=== PATIENT | male | born 1985 ===

== ENCOUNTER 2018-09-03 07:43 | Inpatient (IN) | payer MEDICAID, OTHER ==
[2018-09-03] MEDS ORDERED: Clindamycin 600mg/50ml D5W 600 MG/50 ML VIAL IVPB STA (08:30)
[2018-09-03] MEDS ORDERED: Morphine 4 MG/ML VIAL IVP ONE (08:30)
[2018-09-03] MEDS ORDERED: Sodium Chloride 0.9% 1,000 ML IV STA (08:31)
--- NOTE | 2018-09-03 08:44 | ED PDOC ---
HPI: General Adult Additional History Per: Patient, Family Additional Complaint(s): 33 y/o F with PMH of asthma comes to the ER c/o 2 weeks hx of progressively worsening left hip and left leg/Fibula cellulites/abscess. As per family, this infection started 2 weeks ago as 2 small pimples, pain is 10/10, patient reports he tried to drain this two pimples but they got worse after with swelling, pain and erythema. Both sites are draining bloody fluids, + fever/Nausea and NBNB vomiting x 1, unable to walk or stand up due to the pain. Denies any chest pain, SOB, Abdominal pain, urinary symptoms or weakness. Patient has been taking Ibuprofen at home with minimum relief. PMH: Asthma PSH: Appendicitis, removed Meds: Motrin Allg: Penicillin FH: Denies SH: Denies alcohol, smoking or illicit drug use ROS: As per HPI <Mars Taylor - Last Filed: 09/03/18 09:28> <Salomon Emmanuel - Last Filed: 09/03/18 10:36> Time Seen by Provider: 09/03/18 07:58 Chief Complaint (Nursing): Lower Extremity Problem/Injury Supervising Attending Note - Supervising Attending Note The Documented history was done by the: Physician Ortho Rn The documented physical exam was done by the: Physician Ortho Rn The documented procedures were done by the: Physician Ortho Rn - Attestation: I have personally seen and examined this patient.: Yes I have fully participated in the care of the patient.: Yes I have reviewed all pertinent clinical information, including history, physical exam and plan: Yes - Notes: Notes:: leg infection <Salomon Emmanuel - Last Filed: 09/03/18 10:36> Past Medical History Vital Signs: Last Vital Signs Temp 98.6 F 09/03/18 07:50 Pulse 90 09/03/18 07:50 Resp 18 09/03/18 07:50 BP 150/82 09/03/18 07:50 Pulse Ox 96 09/03/18 07:50 - Medical History PMH: Asthma Denies: Chronic Kidney Disease - Surgical History Surgical History: Appendectomy <Mars Taylor - Last Filed: 09/03/18 09:28> Vital Signs: Last Vital Signs Temp 98.6 F 09/03/18 07:50 Pulse 79 09/03/18 09:45 Resp 18 09/03/18 09:45 BP 121/62 09/03/18 09:45 Pulse Ox 98 09/03/18 09:45 - Family History Family History: States: Unknown Family Hx <Salomon Emmanuel - Last Filed: 09/03/18 10:36> - Home Medications Home Medications: Ambulatory Orders Medication Instructions Recorded No Known Home Med 09/03/18 - Allergies Allergies/Adverse Reactions: Allergies Allergy/AdvReac Type Severity Reaction Status Date / Time Penicillins Allergy ANAPHYLAXIS Verified 09/03/18 08:04 Review of Systems Constitutional: Positive for: Fever. Negative for: Sweats Eyes: Negative for: Pain, Vision Change, Conjunctivae Inflammation ENT: Negative for: Ear Pain, Ear Discharge, Nose Pain Cardiovascular: Negative for: Chest Pain, Palpitations, Orthopnea Respiratory: Negative for: Cough, Shortness of Breath, Hemoptysis Gastrointestinal: Positive for: Nausea, Vomiting. Negative for: Abdominal Pain, Diarrhea Genitourinary Male: Negative for: Dysuria, Frequency, Incontinence Musculoskeletal: Negative for: Neck Pain, Shoulder Pain Skin: Positive for: Rash Neurological: Negative for: Weakness, Numbness, Confusion, Seizures Psych: Negative for: Anxiety <Mars Taylor - Last Filed: 09/03/18 09:28> Physical Exam - Physical Exam Appears: Positive for: Uncomfortable (Due to pain) Head Exam: Positive for: NORMAL INSPECTION Skin: Positive for: Warm (Erythema on left hip and Left fibula ) Eye Exam: Positive for: Normal appearance ENT: Positive for: Normal ENT Inspection Neck: Positive for: Normal Cardiovascular/Chest: Positive for: Regular Rate, Rhythm. Negative for: Chest Non Tender Respiratory: Positive for: Normal Breath Sounds. Negative for: Decreased Breath Sounds, Accessory Muscle Use, Crackles, Wheezing Gastrointestinal/Abdominal: Positive for: Normal Exam, Soft. 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 -CBC -CMP -PT/INR -Mg and Phos -Trop -VBG -Clinda Abx -Toradol -Morphine -Zofran -EKG -Xray: Hip and Fibula -Blood Cx -Wound Cx Case discussed with Dr. Emmanuel Possible admission Patient understands and agrees with plan <BrandonMars - Last Filed: 09/03/18 09:28> - Laboratory Results Result Diagrams: 09/03/18 09:19 09/03/18 09:19 Lab Results: pO2 20 mm/Hg (30-55) L 09/03/18 08:56 VBG pH 7.35 (7.32-7.43) 09/03/18 08:56 VBG pCO2 55 mmHg (40-60) 09/03/18 08:56 VBG HCO3 25.4 mmol/L 09/03/18 08:56 VBG Total CO2 32.1 mmol/L (22-28) H 09/03/18 08:56 VBG O2 Sat (Calc) 39.6 % (40-65) L 09/03/18 08:56 VBG Base Excess 3.1 mmol/L (0.0-2.0) H 09/03/18 08:56 VBG Potassium 4.5 mmol/L (3.6-5.2) 09/03/18 08:56 A-a O2 Difference 61.0 mm/Hg 09/03/18 08:56 Sodium 138.0 mmol/L (132-148) 09/03/18 08:56 Chloride 102.0 mmol/L (98-107) 09/03/18 08:56 Glucose 93 mg/dL (75-110) 09/03/18 08:56 Lactate 1.0 mmol/L (0.7-2.1) 09/03/18 08:56 FiO2 21.0 % 09/03/18 08:56 Crit Value Called To Dr emmanuel 09/03/18 08:56 Crit Value Called By 15 09/03/18 08:56 Crit Value Read Back Y 09/03/18 08:56 Blood Gas Notified Time 919 09/03/18 08:56 PT 12.6 Seconds (9.8-13.1) 09/03/18 09:19 INR 1.1 09/03/18 09:19 APTT 33.9 Seconds (25.6-37.1) 09/03/18 09:19 Troponin I < 0.0120 ng/mL (0.00-0.120) 09/03/18 09:19 Total Bilirubin 0.7 mg/dl (0.2-1.3) 09/03/18 09:19 AST 42 U/L (17-59) 09/03/18 09:19 ALT 14 U/L (21-72) L 09/03/18 09:19 Alkaline Phosphatase 151 U/L (38-126) H 09/03/18 09:19 Total Protein 7.9 G/DL (6.3-8.2) 09/03/18 09:19 Albumin 4.3 g/dL (3.5-5.0) 09/03/18 09:19 Globulin 3.6 gm/dL (2.2-3.9) 09/03/18 09:19 Albumin/Globulin Ratio 1.2 (1.0-2.1) 09/03/18 09:19 Interpretation Of Abn Labs: 13 wbc - ECG ECG: Positive for: Interpreted By Me, Viewed By Me ECG Rhythm: Positive for: Normal QRS, Normal ST Segment, Sinus Rhythm Pulse Ox Interpretation: Normal - Radiology X-Ray: Interpreted by Me, Viewed By Me X-Ray Interpretation: No Acute Disease - Progress ED Course And Treament: 1034: Stable. AAOx3. Pain controlled. Spoke with Dr. Kamara. Will admit. <Salomon Emmanuel - Last Filed: 09/03/18 10:36> Disposition <Mars Taylor - Last Filed: 09/03/18 09:28> - Patient ED Disposition Is Patient to be Admitted: No Counseled Patient/Family Regarding: Studies Performed, Diagnosis - Disposition Disposition Time: 08:00 - Pt Status Changed To: Hospital Disposition Of: Inpatient - Admit Certification Admit to Inpatient:: After my assessment, the patient will require hospitalization for at least two midnights. This is because of the severity of symptoms shown, intensity of services needed, and/or the medical risk in this patient being treated as an outpatient. - POA Present On Arrival: None <Salomon Emmanuel - Last Filed: 09/03/18 10:36> - Clinical Impression Clinical Impression: Cellulitis, Abscess - Disposition Condition: FAIR
[2018-09-03] MEDS ORDERED: Morphine 4 MG/ML VIAL ONE (09:03)
[2018-09-03 09:19] LABS: VENOUS BLOOD GAS BASE EXCESS 3.1 mmol/L (0.0-2.0); VENOUS BLOOD GAS PCO2 55 mmHg (40-60); VENOUS BLOOD GAS PO2 20 mm/Hg (30-55); VENOUS BLOOD PH 7.35 (7.32-7.43)
[2018-09-03 09:45] LABS: BASO % 0.2 % (0.0-2.0); EOS # 0.2 K/uL (0.0-0.7); EOS % 1.7 % (0.0-4.0); HEMOGLOBIN 15.3 g/dL (12.0-18.0); LYMPH # 1.6 K/uL (1.0-4.3); LYMPH % 11.9 % (20.0-40.0); MEAN CELL VOLUME 87.7 fl (80.0-94.0); MEAN CORPUSCULAR HEMOGLOBIN 29.5 pg (27.0-31.0); MEAN CORPUSCULAR HGB CONC 33.7 g/dL (33.0-37.0); MEAN PLATELET VOLUME 8.3 fl (7.2-11.7); MONO # 1.2 K/uL (0.0-0.8); NEUT # 10.1 K/uL (1.8-7.0); NEUT % 77.2 % (50.0-75.0); NRBC % 0.1 % (0.0-0.0); RBC 5.18 Mil/uL (4.40-5.90); RED CELL DISTRIBUTION WIDTH 12.7 % (11.5-14.5)
[2018-09-03 09:50] LABS: INR 1.1; PROTHROMBIN TIME 12.6 Seconds (9.8-13.1)
[2018-09-03 09:53] LABS: PARTIAL THROMBOPLASTIN TIME 33.9 Seconds (25.6-37.1)
[2018-09-03 10:04] LABS: ALB/GLOB RATIO 1.2 (1.0-2.1); ALBUMIN 4.3 g/dL (3.5-5.0); ALT/SGPT 14 U/L (21-72); AST/SGOT 42 U/L (17-59); BLOOD UREA NITROGEN 17 mg/dl (9-20); CALCIUM 10.2 mg/dL (8.4-10.2); GFR NON-AFRICAN AMERICAN > 60
--- NOTE | 2018-09-03 10:53 | CP.PCM.HP ---
<Nicanor Joseph - Last Filed: 09/03/18 12:21> History of Present Illness - History of Present Illness History of Present Illness: 33 yo male with PMH of asthma controlled, present to ED due to skin infection that he noted on Saturday morning. Patient report noting a acne on his LEFT pelvic and knee, and he scraped it, the next day it became inflamed, tender to touch and yellow/bloody discharge. Patient report its very painful, pain is 6 out of 10, but improved with medication. Patient also report having fever, chills, nausea and vomiting once yesterday, so he decided to come to ER today. Otherwise patient have no other complains, he denies headache, chest pain, sob, abdominal pain diarrhea, or constipation, dysuria or polyuria. PCP: none allergy Penicillins MEdication: Albuteron inhalor Prn PMH asthma PSH: Appendectomy PFH: Dad DM, Mom healthy Social: denies smoke or drug use, drink occ, denies having pets. Currently un- employed. ROS Negative except mentioned in HPI ED course Vitals; 98.7 temp, 79 HR, 121/62, 18 rr, 98 Ox WBC :13 X-Ray: Possible cellulites Patient recieved clindamycin, 1g vancomycin and pain was controlled with toradol/morphine Blood culture and wound culture sent. pending result Patient is a 33 yo male with PMH of asthma will be admitted to Med/surg to further treatment of LEFT leg Cellulites/abscess Present on Admission - Present on Admission Any Indicators Present on Admission: No Past Patient History - Past Social History Smoking Status: Never Smoked - CARDIAC Hx Cardiac Disorders: No - PULMONARY Hx Asthma: Yes - NEUROLOGICAL Hx Neurological Disorder: No - HEENT Hx HEENT Problems: No - RENAL Hx Chronic Kidney Disease: No - ENDOCRINE/METABOLIC Hx Endocrine Disorders: No - HEMATOLOGICAL/ONCOLOGICAL Hx Blood Disorders: No - INTEGUMENTARY Hx Dermatological Problems: No - MUSCULOSKELETAL/RHEUMATOLOGICAL Hx Musculoskeletal Disorders: No - GASTROINTESTINAL Hx Gastrointestinal Disorders: No - GENITOURINARY/GYNECOLOGICAL Hx Genitourinary Disorders: No - PSYCHIATRIC Hx Psychophysiologic Disorder: No Hx Substance Use: No - SURGICAL HISTORY Hx Appendectomy: Yes - ANESTHESIA Hx Anesthesia: Yes Hx Anesthesia Reactions: No Hx Malignant Hyperthermia: No Meds Allergies/Adverse Reactions: Allergies Allergy/AdvReac Type Severity Reaction Status Date / Time Penicillins Allergy ANAPHYLAXIS Verified 09/03/18 08:04 Physical Exam - Constitutional Appears: Well, Non-toxic, No Acute Distress - Head Exam Head Exam: ATRAUMATIC, NORMAL INSPECTION, NORMOCEPHALIC - Eye Exam Eye Exam: EOMI, Normal appearance, PERRL Pupil Exam: NORMAL ACCOMODATION, PERRL - ENT Exam ENT Exam: Mucous Membranes Moist, Normal Exam - Neck Exam Neck exam: Positive for: Normal Inspection - Respiratory Exam Respiratory Exam: Clear to Auscultation Bilateral, NORMAL BREATHING PATTERN - Cardiovascular Exam Cardiovascular Exam: REGULAR RHYTHM, +S1, +S2 - GI/Abdominal Exam GI & Abdominal Exam: Normal Bowel Sounds, Soft - Extremities Exam Additional comments: knee Tender to touch, warm, erythema noted from Knee to ankle, with an 3 inch abscess on the medial part of tibia Pelvic 1-2 inch erythma noted on left lateral side of pelvic, mild drainage, tender to palpate. - Back Exam Back exam: NORMAL INSPECTION - Neurological Exam Neurological exam: Alert, Oriented x3 - Psychiatric Exam Psychiatric exam: Normal Affect, Normal Mood - Skin Skin Exam: Dry, Intact, Normal Color, Warm Results - Vital Signs Recent Vital Signs: Last Vital Signs Temp 98.7 F 09/03/18 09:45 Pulse 79 09/03/18 09:45 Resp 18 09/03/18 09:45 BP 121/62 09/03/18 09:45 Pulse Ox 98 09/03/18 09:45 - Labs Result Diagrams: 09/03/18 09:19 09/03/18 09:19 Labs: Laboratory Results - last 24 hr 09/03/18 09/03/18 09/03/18 08:56 09:19 09:19 WBC 13.0 H RBC 5.18 Hgb 15.3 Hct 45.5 MCV 87.7 MCH 29.5 MCHC 33.7 RDW 12.7 Plt Count 294 MPV 8.3 Neut % (Auto) 77.2 H Lymph % (Auto) 11.9 L [place] % (Auto) 9.0 Eos % (Auto) 1.7 Baso % (Auto) 0.2 Neut # (Auto) 10.1 H Lymph # (Auto) 1.6 [place] # (Auto) 1.2 H Eos # (Auto) 0.2 Baso # (Auto) 0.0 PT INR APTT pO2 20 L VBG pH 7.35 VBG pCO2 55 VBG HCO3 25.4 VBG Total CO2 32.1 H VBG O2 Sat (Calc) 39.6 L VBG Base Excess 3.1 H VBG Potassium 4.5 A-a O2 Difference 61.0 Sodium 138.0 141 Chloride 102.0 98 Glucose 93 Lactate 1.0 FiO2 21.0 Crit Value Called To Dr emmanuel Crit Value Called By 15 Crit Value Read Back Y Blood Gas Notified Time 919 Potassium 4.5 Carbon Dioxide 29 Anion Gap 19 BUN 17 Creatinine 0.9 Est GFR ( Amer) > 60 Est GFR (Non-Af Amer) > 60 Random Glucose 94 Calcium 10.2 Phosphorus 3.0 Magnesium 2.2 Total Bilirubin 0.7 AST 42 ALT 14 L Alkaline Phosphatase 151 H Troponin I < 0.0120 Total Protein 7.9 Albumin 4.3 Globulin 3.6 Albumin/Globulin Ratio 1.2 Venous Blood Potassium 4.5 09/03/18 09:19 WBC RBC Hgb Hct MCV MCH MCHC RDW Plt Count MPV Neut % (Auto) Lymph % (Auto) [place] % (Auto) Eos % (Auto) Baso % (Auto) Neut # (Auto) Lymph # (Auto) [place] # (Auto) Eos # (Auto) Baso # (Auto) PT 12.6 INR 1.1 APTT 33.9 pO2 VBG pH VBG pCO2 VBG HCO3 VBG Total CO2 VBG O2 Sat (Calc) VBG Base Excess VBG Potassium A-a O2 Difference Sodium Chloride Glucose Lactate FiO2 Crit Value Called To Crit Value Called By Crit Value Read Back Blood Gas Notified Time Potassium Carbon Dioxide Anion Gap BUN Creatinine Est GFR ( Amer) Est GFR (Non-Af Amer) Random Glucose Calcium Phosphorus Magnesium Total Bilirubin AST ALT Alkaline Phosphatase Troponin I Total Protein Albumin Globulin Albumin/Globulin Ratio Venous Blood Potassium Assessment & Plan - Assessment and Plan (Free Text) Assessment: Patient is a 33 yo male with PMH of asthma will be admitted to Med/surg to further treatment of LEFT leg Cellulites/abscess Plan LEFT pelvic, knee Cellulites/abscess knee Tender to touch, warm, erythema noted from Knee to ankle, with an 3 inch abscess on the medial part of tibia Pelvic 1-2 inch erythma noted on left lateral side of pelvic, mild drainage, tender to palpate. Start Vancomycin 1g Q12h Pain 1-6 acetaminophen Pain 7-10 Toradol 15mg F/u vitals F/u blood culture f/u wound culture monitor expansion for erythema DVT prophylaxis SCD Lovenox 40 SC <Sol Kamara - Last Filed: 09/04/18 11:24> Results - Vital Signs Recent Vital Signs: Last Vital Signs Temp 99.1 F 09/04/18 08:01 Pulse 86 09/04/18 08:01 Resp 20 09/04/18 08:01 BP 136/68 09/04/18 08:01 Pulse Ox 98 09/04/18 08:01 - Labs Result Diagrams: 09/04/18 05:50 09/04/18 05:50 Labs: Laboratory Results - last 24 hr 09/03/18 09/03/18 09/04/18 08:56 15:04 05:50 WBC 11.2 H 12.3 H RBC 3.34 L 4.45 Hgb 9.7 L D 13.1 D Hct 28.4 L 38.9 MCV 85.1 D 87.4 D MCH 29.0 29.5 MCHC 34.1 33.7 RDW 13.3 12.6 Plt Count 396 D 297 Crit Value Called To Dr cholo hogan Sodium Potassium Chloride Carbon Dioxide Anion Gap BUN Creatinine Est GFR ( Amer) Est GFR (Non-Af Amer) Random Glucose Calcium Total Bilirubin AST ALT Alkaline Phosphatase Total Protein Albumin Globulin Albumin/Globulin Ratio 09/04/18 05:50 WBC RBC Hgb Hct MCV MCH MCHC RDW Plt Count Crit Value Called To Sodium 142 Potassium 4.1 Chloride 103 Carbon Dioxide 30 Anion Gap 13 BUN 15 Creatinine 0.9 Est GFR ( Amer) > 60 Est GFR (Non-Af Amer) > 60 Random Glucose 90 Calcium 9.3 Total Bilirubin 0.4 AST 23 ALT 20 L D Alkaline Phosphatase 98 Total Protein 6.7 Albumin 3.3 L D Globulin 3.5 Albumin/Globulin Ratio 0.9 L Attending/Attestation - Attestation I have personally seen and examined this patient.: Yes I have fully participated in the care of the patient.: Yes I have reviewed all pertinent clinical information: Yes Notes (Text): 09/04/18 11:22 Agree with findings and plan as above
--- NOTE | 2018-09-03 11:03 | RAD ---
Date of service: 09/03/2018 PROCEDURE: Radiographs of the left tibia and fibula. HISTORY: pain COMPARISON: None available. TECHNIQUE: Frontal and lateral views obtained. FINDINGS: BONES: No fracture. No lytic or blastic osseous lesion. No osseous erosion or periosteal reaction. JOINT SPACES: Unremarkable. OTHER FINDINGS: There is mild skin thickening and stranding of the subcutaneous fat along the medial aspect of the proximal tibial metadiaphysis which may reflect cellulitis. IMPRESSION: Possible cellulitis. Otherwise unremarkable.
[2018-09-03] MEDS ORDERED: Vancomycin 1 g Inj ONE (11:26)
[2018-09-03 12:27] VITALS: BMI 31.0
[2018-09-03] MEDS ORDERED: Influenza Vaccine (5 YR UP)/PF 60 MCG/0.5 ML SYR IM ONE (13:55)
[2018-09-03] MEDS ORDERED: Influenza Vaccine 60 mcg/0.5 mL SYR (4YR UP) IM ONE (14:15)
--- NOTE | 2018-09-03 15:16 | RAD ---
PROCEDURE: Left Hip X-ray Radiographs. HISTORY: pain COMPARISON: None. FINDINGS: BONES: Normal. No fracture. JOINTS: Normal. SOFT TISSUES: Normal. OTHER FINDINGS: None. IMPRESSION: Normal left hip radiographs.
[2018-09-03 15:17] LABS: HEMOGLOBIN 9.7 g/dL (12.0-18.0); MEAN CELL VOLUME 85.1 fl (80.0-94.0); MEAN CORPUSCULAR HGB CONC 34.1 g/dL (33.0-37.0); RBC 3.34 Mil/uL (4.40-5.90); RED CELL DISTRIBUTION WIDTH 13.3 % (11.5-14.5); WHITE BLOOD COUNT 11.2 K/uL (4.8-10.8)
--- NOTE | 2018-09-03 17:35 | CARD ---
APPROVED REPORT Date of service: 09/03/2018 EKG Measurement Heart [id number] <Conclusion> Normal sinus rhythm Normal ECG
[2018-09-04 06:27] LABS: MEAN CORPUSCULAR HEMOGLOBIN 29.5 pg (27.0-31.0); MEAN CORPUSCULAR HGB CONC 33.7 g/dL (33.0-37.0); RBC 4.45 Mil/uL (4.40-5.90); RED CELL DISTRIBUTION WIDTH 12.6 % (11.5-14.5); WHITE BLOOD COUNT 12.3 K/uL (4.8-10.8)
[2018-09-04 06:37] LABS: HEMOGLOBIN 13.1 g/dL (12.0-18.0)
[2018-09-04 06:38] LABS: MEAN CELL VOLUME 87.4 fl (80.0-94.0)
[2018-09-04 07:20] LABS: ALB/GLOB RATIO 0.9 (1.0-2.1); ALBUMIN 3.3 g/dL (3.5-5.0); ALT/SGPT 20 U/L (21-72); AST/SGOT 23 U/L (17-59); BLOOD UREA NITROGEN 15 mg/dl (9-20); CALCIUM 9.3 mg/dL (8.4-10.2); GFR NON-AFRICAN AMERICAN > 60
[2018-09-04] MEDS: Enoxaparin 40 mg Syringe SC SCH (08:39)
--- NOTE | 2018-09-04 11:19 | CP.PCM.PN ---
<Nicanor Joseph - Last Filed: 09/04/18 11:22> Subjective - Date & Time of Evaluation Date of Evaluation: 09/04/18 Time of Evaluation: 07:00 - Subjective Subjective: Patient seen and examined at bedside. No acute event overnight. Patient report having some fever and chills, he also complain that leg still painful and feel that redness have worsen, otherwise he denies headache, chest pain, sob, abd pain diarrhea, or constipation. Objective - Vital Signs/Intake and Output Vital Signs (last 24 hours): Temp Pulse Resp BP Pulse Ox 99.1 F 86 20 136/68 98 09/04/18 08:01 09/04/18 08:01 09/04/18 08:01 09/04/18 08:01 09/04/18 08:01 - Medications Medications: Current Medications Acetaminophen (Tylenol 325mg Tab) 975 mg PO Q8H PRN PRN Reason: Pain, moderate (4-7) Enoxaparin Sodium (Lovenox) 40 mg SC DAILY GINGER; Protocol Last Admin: 09/04/18 08:39 Dose: 40 mg Vancomycin HCl 1 gm/ Sodium (Chloride) 250 mls @ 166.667 mls/hr IVPB Q12H GINGER; Protocol Last Admin: 09/04/18 09:36 Dose: 166.667 mls/hr Piperacillin Sod/Tazobactam (Sod 2.25 gm/ Sodium Chloride) 100 mls @ 100 mls/hr IVPB Q12 GINGER; Protocol Ketorolac Tromethamine (Toradol) 15 mg IVP Q6 PRN PRN Reason: Pain, severe (8-10) Last Admin: 09/04/18 09:06 Dose: 15 mg - Labs Labs: 09/04/18 05:50 09/04/18 05:50 PT 12.6 Seconds (9.8-13.1) 09/03/18 09:19 INR 1.1 09/03/18 09:19 APTT 33.9 Seconds (25.6-37.1) 09/03/18 09:19 - Constitutional Appears: Well, Non-toxic, No Acute Distress - Head Exam Head Exam: ATRAUMATIC, NORMAL INSPECTION, NORMOCEPHALIC - Eye Exam Eye Exam: EOMI, Normal appearance, PERRL Pupil Exam: NORMAL ACCOMODATION, PERRL - ENT Exam ENT Exam: Mucous Membranes Moist, Normal Exam - Neck Exam Neck Exam: Full ROM - Respiratory Exam Respiratory Exam: Clear to Ausculation Bilateral, NORMAL BREATHING PATTERN - Cardiovascular Exam Cardiovascular Exam: REGULAR RHYTHM, +S1, +S2 - GI/Abdominal Exam GI & Abdominal Exam: Soft, Normal Bowel Sounds - Extremities Exam Additional comments: LEFT lower Extremities Cellulites noted from thigh to ankle, worsen from yesterday, marked with surgical marker for reference. There is a abscess on the later part of tibia, proximal to the knee. There is a drainable abscess noted on the left pelvic side. Leg tender and warm to touch - Back Exam Back Exam: NORMAL INSPECTION - Neurological Exam Neurological Exam: Alert, Awake, Normal Gait, Oriented x3 - Psychiatric Exam Psychiatric exam: Normal Affect, Normal Mood - Skin Skin Exam: Dry, Intact, Normal Color, Warm Assessment and Plan - Assessment and Plan (Free Text) Assessment: Assessment: Patient is a 33 yo male with PMH of asthma will be admitted to Med/surg to further treatment of LEFT leg Cellulites/abscess Plan LEFT pelvic, knee Cellulites/abscess WBC 13->12.3 LEFT lower Extremities Cellulites noted from thigh to ankle, worsen from yesterday, marked with surgical marker for reference. There is a abscess on the later part of tibia, proximal to the knee. There is a drainable abscess noted on the left pelvic side. Leg tender and warm to touch Continue Vancomycin 1g Q12h day 2 Start on Zosyn 2.25 Q12h Day 1 Pain 1-6 acetaminophen Pain 7-10 Toradol 15mg F/u vitals blood culture pending F/U wound culture pending, Follow up monitor expansion for erythema DVT prophylaxis SCD Lovenox 40 SC <Sol Kamara - Last Filed: 09/04/18 11:35> Objective - Vital Signs/Intake and Output Vital Signs (last 24 hours): Temp Pulse Resp BP Pulse Ox 99.1 F 86 20 136/68 98 09/04/18 08:01 09/04/18 08:01 09/04/18 08:01 09/04/18 08:01 09/04/18 08:01 - Medications Medications: Current Medications Acetaminophen (Tylenol 325mg Tab) 975 mg PO Q8H PRN PRN Reason: Pain, moderate (4-7) Enoxaparin Sodium (Lovenox) 40 mg SC DAILY GINGER; Protocol Last Admin: 09/04/18 08:39 Dose: 40 mg Vancomycin HCl 1 gm/ Sodium (Chloride) 250 mls @ 166.667 mls/hr IVPB Q12H GINGER; Protocol Last Admin: 09/04/18 09:36 Dose: 166.667 mls/hr Piperacillin Sod/Tazobactam (Sod 2.25 gm/ Sodium Chloride) 100 mls @ 100 mls/hr IVPB Q12 GINGER; Protocol Ketorolac Tromethamine (Toradol) 15 mg IVP Q6 PRN PRN Reason: Pain, severe (8-10) Last Admin: 09/04/18 09:06 Dose: 15 mg - Labs Labs: 09/04/18 05:50 09/04/18 05:50 PT 12.6 Seconds (9.8-13.1) 09/03/18 09:19 INR 1.1 09/03/18 09:19 APTT 33.9 Seconds (25.6-37.1) 09/03/18 09:19 Attending/Attestation - Attestation I have personally seen and examined this patient.: Yes I have fully participated in the care of the patient.: Yes I have reviewed all pertinent clinical information, including history, physical exam and plan: Yes Notes (Text): 09/04/18 11:35 agree with findings and plan as above
[2018-09-05] MEDS: Enoxaparin 40 mg Syringe SC SCH (08:23)
[2018-09-05 08:24] VITALS: BP 138/74; PULSE 71; RESP 20; TEMP 98.1; O2SAT 96
[2018-09-05] MEDS ORDERED: Lidocaine 1% Inj (20ml) IJ ONE (09:55)
[2018-09-05 10:10] LABS: HEMOGLOBIN 13.9 g/dL (12.0-18.0); MEAN CELL VOLUME 87.9 fl (80.0-94.0); MEAN CORPUSCULAR HEMOGLOBIN 29.8 pg (27.0-31.0); RBC 4.65 Mil/uL (4.40-5.90); RED CELL DISTRIBUTION WIDTH 12.4 % (11.5-14.5); WHITE BLOOD COUNT 9.7 K/uL (4.8-10.8)
[2018-09-05 10:25] LABS: BLOOD UREA NITROGEN 14 mg/dl (9-20); CALCIUM 9.6 mg/dL (8.4-10.2); GFR NON-AFRICAN AMERICAN > 60
[2018-09-05] MEDS ORDERED: Hydrogen Peroxide 3% Soln (480ml) TP ONE (10:29)
[2018-09-05] MEDS ORDERED: Influenza Vaccine 60 mcg/0.5 mL SYR (4YR UP) IM ONE (11:02)
--- NOTE | 2018-09-05 15:23 | CP.PCM.DIS ---
<Nicanor Joseph - Last Filed: 09/05/18 16:05> Provider - Provider Date of Admission: 09/03/18 09:53 Attending physician: Sol Kamara DO Time Spent in preparation of Discharge (in minutes): 20 Diagnosis - Discharge Diagnosis (1) Abscess Status: Acute (2) Cellulitis Status: Acute Hospital Course - Lab Results Lab Results: Micro Results 09/03/18 09:24 Leg - Left Gram Stain - Final 09/03/18 09:24 Leg - Left Wound Culture - Final Methicillin Resistant S Aureus 09/03/18 09:24 Hip - Left Gram Stain - Final 09/03/18 09:24 Hip - Left Wound Culture - Final Methicillin Resistant S Aureus 09/03/18 09:19 Blood Blood Culture - Preliminary NO GROWTH AFTER 48 HOURS 09/03/18 09:19 Blood Blood Culture - Preliminary NO GROWTH AFTER 48 HOURS Most Recent Lab Values WBC 9.7 K/uL (4.8-10.8) 09/05/18 09:45 RBC 4.65 Mil/uL (4.40-5.90) 09/05/18 09:45 Hgb 13.9 g/dL (12.0-18.0) 09/05/18 09:45 Hct 40.8 % (35.0-51.0) 09/05/18 09:45 MCV 87.9 fl (80.0-94.0) 09/05/18 09:45 MCH 29.8 pg (27.0-31.0) 09/05/18 09:45 MCHC 34.0 g/dL (33.0-37.0) 09/05/18 09:45 RDW 12.4 % (11.5-14.5) 09/05/18 09:45 Plt Count 337 K/uL (130-400) 09/05/18 09:45 MPV 8.3 fl (7.2-11.7) 09/03/18 09:19 Neut % (Auto) 77.2 % (50.0-75.0) H 09/03/18 09:19 Lymph % (Auto) 11.9 % (20.0-40.0) L 09/03/18 09:19 [place] % (Auto) 9.0 % (0.0-10.0) 09/03/18 09:19 Eos % (Auto) 1.7 % (0.0-4.0) 09/03/18 09:19 Baso % (Auto) 0.2 % (0.0-2.0) 09/03/18 09: Neut # (Auto) 10.1 K/uL (1.8-7.0) H 09/03/18 09:19 Lymph # (Auto) 1.6 K/uL (1.0-4.3) 09/03/18 09:19 [place] # (Auto) 1.2 K/uL (0.0-0.8) H 09/03/18 09:19 Eos # (Auto) 0.2 K/uL (0.0-0.7) 09/03/18 09: Baso # (Auto) 0.0 K/uL (0.0-0.2) 09/03/18 09:19 PT 12.6 Seconds (9.8-13.1) 09/03/18 09: INR 1.1 09/03/18 09:19 APTT 33.9 Seconds (25.6-37.1) 09/03/18 09:19 pO2 20 mm/Hg (30-55) L 09/03/18 08:56 VBG pH 7.35 (7.32-7.43) 09/03/18 08:56 VBG pCO2 55 mmHg (40-60) 09/03/18 08:56 VBG HCO3 25.4 mmol/L 09/03/18 08:56 VBG Total CO2 32.1 mmol/L (22-28) H 09/03/18 08:56 VBG O2 Sat (Calc) 39.6 % (40-65) L 09/03/18 08:56 VBG Base Excess 3.1 mmol/L (0.0-2.0) H 09/03/18 08:56 VBG Potassium 4.5 mmol/L (3.6-5.2) 09/03/18 08:56 A-a O2 Difference 61.0 mm/Hg 09/03/18 08:56 Sodium 138.0 mmol/L (132-148) 09/03/18 08:56 Chloride 102.0 mmol/L (98-107) 09/03/18 08:56 Glucose 93 mg/dL (75-110) 09/03/18 08:56 Lactate 1.0 mmol/L (0.7-2.1) 09/03/18 08:56 FiO2 21.0 % 09/03/18 08:56 Crit Value Called To Dr cholo hogan 09/03/18 08:56 Crit Value Called By 15 09/03/18 08:56 Crit Value Read Back Y 09/03/18 08:56 Blood Gas Notified Time 919 09/03/18 08:56 Sodium 141 mmol/l (132-148) 09/05/18 09:45 Potassium 3.9 MMOL/L (3.6-5.0) 09/05/18 09:45 Chloride 101 mmol/L (98-107) 09/05/18 09:45 Carbon Dioxide 30 mmol/L (22-30) 09/05/18 09:45 Anion Gap 14 (10-20) 09/05/18 09:45 BUN 14 mg/dl (9-20) 09/05/18 09:45 Creatinine 0.9 mg/dl (0.8-1.5) 09/05/18 09:45 Est GFR ( Amer) > 60 09/05/18 09:45 Est GFR (Non-Af Amer) > 60 09/05/18 09:45 Random Glucose 132 mg/dL (75-110) H 09/05/18 09:45 Calcium 9.6 mg/dL (8.4-10.2) 09/05/18 09:45 Phosphorus 3.0 mg/dl (2.5-4.5) 09/03/18 09:19 Magnesium 2.2 MG/DL (1.6-2.3) 09/03/18 09:19 Total Bilirubin 0.4 mg/dl (0.2-1.3) 09/04/18 05:50 AST 23 U/L (17-59) 09/04/18 05:50 ALT 20 U/L (21-72) L D 09/04/18 05:50 Alkaline Phosphatase 98 U/L (38-126) 09/04/18 05:50 Troponin I < 0.0120 ng/mL (0.00-0.120) 09/03/18 09:19 Total Protein 6.7 G/DL (6.3-8.2) 09/04/18 05:50 Albumin 3.3 g/dL (3.5-5.0) L D 09/04/18 05:50 Globulin 3.5 gm/dL (2.2-3.9) 09/04/18 05:50 Albumin/Globulin Ratio 0.9 (1.0-2.1) L 09/04/18 05:50 Venous Blood Potassium 4.5 mmol/L (3.6-5.2) 09/03/18 08:56 Vancomycin Trough 6.8 ug/mL (5.0-10.0) 09/05/18 09:45 - Hospital Course Hospital Course: 33 yo male with PMH of asthma controlled, present to ED due to skin infection, admitted to Med/surg to further treatment of LEFT leg Cellulites/abscess. ED course Vitals; 98.7 temp, 79 HR, 121/62, 18 rr, 98 Ox WBC :13 X-Ray: cellulites no osteo. Patient received clindamycin, 1g vancomycin and pain was controlled with torad ol/morphine Blood culture and wound culture sent. pending result In the floor patient received Vancomycin 1g Q12h for total of 3 days and Zosyn 2.25Q12h for total of 2 days. Patient pain was controlled with acetomenophen and toradol. Blood culture and wound culture sent, Blood Cx negative, Wound culture was positive for MRSA. Patient abscess were I&D at bedside with local anesthesia, cellular wall breakage performed with sterile Qtips, And it was covered with gauze. Patient cellulites have markedly decreased today, patient report feeling better, denies having any fever chills, nausea,vomiting, he does state he have some pain, but have markedly decreased after I&D. Patient report is stable to be discharged home and follow up with PCP and wound care within a week. Patient Discharged on Clindamycin and probiotic Patient ER precaution given. Discharge Exam - Head Exam Head Exam: ATRAUMATIC, NORMAL INSPECTION, NORMOCEPHALIC - Eye Exam Eye Exam: EOMI, Normal appearance, PERRL Pupil Exam: NORMAL ACCOMODATION, PERRL - Respiratory Exam Respiratory Exam: Clear to PA & Lateral, NORMAL BREATHING PATTERN, UNREMARKABLE - Cardiovascular Exam Cardiovascular Exam: REGULAR RHYTHM, +S1, +S2 - GI/Abdominal Exam GI & Abdominal Exam: Normal Bowel Sounds, Unremarkable - Extremities Exam Additional comments: Celullitis on left lower extremities, previously was on posterior part of thigh to ankle, it have improved and now its below the knee to ankle, there is 2 abscess noted, one left pelvic, and one left medial part of tibial shaft. - Back Exam Back exam: NORMAL INSPECTION - Neurological Exam Neurological exam: Alert, CN II-XII Intact, Oriented x3 Discharge Plan - Discharge Medications Prescriptions: Clindamycin [Cleocin] 300 mg PO Q8H #30 cap Lactobacillus Combination No.8 [Adult Probiotic] 1 each PO DAILY #30 capsule - Follow Up Plan Condition: FAIR Disposition: HOME/ ROUTINE Instructions: Abscess Incision and Drainage (DC), Cellulitis (DC), Cellulitis (GEN), Abscess (GEN) Additional Instructions: hacer gerardo con hughes [address] Jorge araiza Referrals: [facility] [place] [Outside] <Elliott Casas - Last Filed: 09/05/18 17:14> Provider - Provider Date of Admission: 09/03/18 09:53 Attending physician: Sol Kamara DO Hospital Course - Lab Results Lab Results: Micro Results 09/03/18 09:24 Leg - Left Gram Stain - Final 09/03/18 09:24 Leg - Left Wound Culture - Final Methicillin Resistant S Aureus 09/03/18 09:24 Hip - Left Gram Stain - Final 09/03/18 09:24 Hip - Left Wound Culture - Final Methicillin Resistant S Aureus 09/03/18 09:19 Blood Blood Culture - Preliminary NO GROWTH AFTER 48 HOURS 09/03/18 09:19 Blood Blood Culture - Preliminary NO GROWTH AFTER 48 HOURS Most Recent Lab Values WBC 9.7 K/uL (4.8-10.8) 09/05/18 09:45 RBC 4.65 Mil/uL (4.40-5.90) 09/05/18 09:45 Hgb 13.9 g/dL (12.0-18.0) 09/05/18 09:45 Hct 40.8 % (35.0-51.0) 09/05/18 09:45 MCV 87.9 fl (80.0-94.0) 09/05/18 09:45 MCH 29.8 pg (27.0-31.0) 09/05/18 09:45 MCHC 34.0 g/dL (33.0-37.0) 09/05/18 09:45 RDW 12.4 % (11.5-14.5) 09/05/18 09:45 Plt Count 337 K/uL (130-400) 09/05/18 09:45 MPV 8.3 fl (7.2-11.7) 09/03/18 09:19 Neut % (Auto) 77.2 % (50.0-75.0) H 09/03/18 09:19 Lymph % (Auto) 11.9 % (20.0-40.0) L 09/03/18 09:19 [place] % (Auto) 9.0 % (0.0-10.0) 09/03/18 09:19 Eos % (Auto) 1.7 % (0.0-4.0) 09/03/18 09:19 Baso % (Auto) 0.2 % (0.0-2.0) 09/03/18 09:19 Neut # (Auto) 10.1 K/uL (1.8-7.0) H 09/03/18 09:19 Lymph # (Auto) 1.6 K/uL (1.0-4.3) 09/03/18 09:19 [place] # (Auto) 1.2 K/uL (0.0-0.8) H 09/03/18 09:19 Eos # (Auto) 0.2 K/uL (0.0-0.7) 09/03/18 09:19 Baso # (Auto) 0.0 K/uL (0.0-0.2) 09/03/18 09:19 PT 12.6 Seconds (9.8-13.1) 09/03/18 09:19 INR 1.1 09/03/18 09:19 APTT 33.9 Seconds (25.6-37.1) 09/03/18 09:19 pO2 20 mm/Hg (30-55) L 09/03/18 08:56 VBG pH 7.35 (7.32-7.43) 09/03/18 08:56 VBG pCO2 55 mmHg (40-60) 09/03/18 08:56 VBG HCO3 25.4 mmol/L 09/03/18 08:56 VBG Total CO2 32.1 mmol/L (22-28) H 09/03/18 08:56 VBG O2 Sat (Calc) 39.6 % (40-65) L 09/03/18 08:56 VBG Base Excess 3.1 mmol/L (0.0-2.0) H 09/03/18 08:56 VBG Potassium 4.5 mmol/L (3.6-5.2) 09/03/18 08:56 A-a O2 Difference 61.0 mm/Hg 09/03/18 08:56 Sodium 138.0 mmol/L (132-148) 09/03/18 08:56 Chloride 102.0 mmol/L (98-107) 09/03/18 08:56 Glucose 93 mg/dL (75-110) 09/03/18 08:56 Lactate 1.0 mmol/L (0.7-2.1) 09/03/18 08:56 FiO2 21.0 % 09/03/18 08:56 Crit Value Called To Dr cholo hogan 09/03/18 08:56 Crit Value Called By Robinson 09/03/18 08:56 Crit Value Read Back Y 09/03/18 08:56 Blood Gas Notified Time 919 09/03/18 08:56 Sodium 141 mmol/l (132-148) 09/05/18 09:45 Potassium 3.9 MMOL/L (3.6-5.0) 09/05/18 09:45 Chloride 101 mmol/L (98-107) 09/05/18 09:45 Carbon Dioxide 30 mmol/L (22-30) 09/05/18 09:45 Anion Gap 14 (10-20) 09/05/18 09:45 BUN 14 mg/dl (9-20) 09/05/18 09:45 Creatinine 0.9 mg/dl (0.8-1.5) 09/05/18 09:45 Est GFR ( Amer) > 60 09/05/18 09:45 Est GFR (Non-Af Amer) > 60 09/05/18 09:45 Random Glucose 132 mg/dL (75-110) H 09/05/18 09:45 Calcium 9.6 mg/dL (8.4-10.2) 09/05/18 09:45 Phosphorus 3.0 mg/dl (2.5-4.5) 09/03/18 09:19 Magnesium 2.2 MG/DL (1.6-2.3) 09/03/18 09:19 Total Bilirubin 0.4 mg/dl (0.2-1.3) 09/04/18 05:50 AST 23 U/L (17-59) 09/04/18 05:50 ALT 20 U/L (21-72) L D 09/04/18 05:50 Alkaline Phosphatase 98 U/L (38-126) 09/04/18 05:50 Troponin I < 0.0120 ng/mL (0.00-0.120) 09/03/18 09:19 Total Protein 6.7 G/DL (6.3-8.2) 09/04/18 05:50 Albumin 3.3 g/dL (3.5-5.0) L D 09/04/18 05:50 Globulin 3.5 gm/dL (2.2-3.9) 09/04/18 05:50 Albumin/Globulin Ratio 0.9 (1.0-2.1) L 09/04/18 05:50 Venous Blood Potassium 4.5 mmol/L (3.6-5.2) 09/03/18 08:56 Vancomycin Trough 6.8 ug/mL (5.0-10.0) 09/05/18 09:45 Attending/Attestation - Attestation I have personally seen and examined this patient.: Yes I have fully participated in the care of the patient.: Yes I have reviewed all pertinent clinical information, including history, physical exam and plan: Yes Notes (Text): 09/05/18 17:13 Patient seen and examined with resident. Case discussed and agreed with assessment. Patient discharged in stable condition on PO Clindamycin.
== END 2018-09-05 13:40 | disposition home or self-care (01) | DRG 383 ==
LOC: H.ER 07:43 → H.ERHOLD 09:53 → H.MEDSURG1 12:23
PROVIDERS: ADMIT Student in an Organized Health Care Education/Training Program; ATTEND Student in an Organized Health Care Education/Training Program
PROC: 0H9LXZZ Drainage of Left Lower Leg Skin, External Approach (ICD-10-PCS; principal; 2018-09-05)
PROC: 0H9JXZZ Drainage of Left Upper Leg Skin, External Approach (ICD-10-PCS; 2018-09-05)
PROC: 3E02340 Introduction of Influenza Vaccine into Muscle, Percutaneous Approach (ICD-10-PCS; 2018-09-05)
DX: L03.116 Cellulitis of left lower limb (principal); J45.909 Unspecified asthma, uncomplicated; L02.416 Cutaneous abscess of left lower limb; Z83.3 Family history of diabetes mellitus; Z23 Encounter for immunization